=== PATIENT | male | born 1985 | race Caucasian/White ===

== ENCOUNTER 2017-05-15 08:39 | Inpatient (IN) ==
[2017-05-15] MEDS ORDERED: HYDROmorphone 2 MG/1 ML VIAL ONE (09:51)
[2017-05-15] MEDS ORDERED: HYDROmorphone 2 MG/1 ML VIAL IV STA (09:54)
[2017-05-15] MEDS ORDERED: cefOXitin 2,000 MG in SYRINGE 1 EACH IV ONE (10:43)
[2017-05-15] MEDS ORDERED: BUPIVACAINE 0.25% 50 ML VIAL ONE (11:10)
[2017-05-15] MEDS ORDERED: PROPOFOL 200 MG/20 ML VIAL IV ONE (12:15)
[2017-05-15] MEDS ORDERED: SEVOFLURANE 1 UNIT/15 MINUTE INH ONE (12:15)
[2017-05-15] MEDS ORDERED: KETOROLAC 30 MG/1 ML VIAL ONE (12:16)
[2017-05-15] MEDS ORDERED: SUCCINYLCHOLINE 200 MG/10 ML VIAL ONE (12:16)
[2017-05-15] MEDS ORDERED: ROCURONIUM 100 MG/10 ML VIAL IV ONE (12:16)
[2017-05-15] MEDS ORDERED: GLYCOPYRROLATE 0.4 MG/2 ML VIAL ONE (12:16)
[2017-05-15] MEDS ORDERED: LACTATED RINGERS 1,000 ML IV ONE (12:16)
[2017-05-15] MEDS ORDERED: fentaNYL 100 MCG/2 ML VIAL ONE (12:16)
[2017-05-15] MEDS ORDERED: DEXAMETHASONE 10 MG/1 ML VIAL ONE (12:16)
[2017-05-15] MEDS ORDERED: NEOSTIGMINE 10 MG/10 ML VIAL ONE (12:16)
[2017-05-15] MEDS ORDERED: ONDANSETRON 4 MG/2 ML VIAL ONE (12:16)
[2017-05-15] MEDS ORDERED: METOCLOPRAMIDE 10 MG/2 ML VIAL ONE (12:21)
[2017-05-15] MEDS ORDERED: ONDANSETRON 4 MG/2 ML VIAL IV PRN (13:14)
[2017-05-15] MEDS ORDERED: ALBUTEROL/IPRATROPIUM 3 ML NEB RESP TX PRN (13:14)
[2017-05-15] MEDS: LACTATED RINGERS 1,000 ML IV SCH (13:33)
[2017-05-15] MEDS: cefOXitin 2,000 MG in SYRINGE 1 EACH IV SCH ×2 (17:32→23:47)
[2017-05-15] MEDS: MORPHINE 2 MG/1 ML SYRINGE IV PRN ×2 (18:46→23:57)
[2017-05-16] MEDS: LACTATED RINGERS 1,000 ML IV SCH ×2 (04:09→07:55)
[2017-05-16] MEDS: cefOXitin 2,000 MG in SYRINGE 1 EACH IV SCH (05:52)
[2017-05-16] MEDS ORDERED: PANTOPRAZOLE 40 MG TABLET PO SCH (09:00)
[2017-05-16 11:21] VITALS: BP 120/68
== END 2017-05-16 11:55 | disposition home or self-care (01) | DRG 225 ==
LOC: EDBD → EDUNIT# → N.ED 08:39 → N.3E 11:00 → N.EDINP 12:07 → N.3E 13:12
PROVIDERS: ADMIT Surgery; ATTEND Surgery